=== PATIENT | male | born 1945 | race Caucasian/White ===

== ENCOUNTER → 2019-03-17 | Outpatient (CLI) | payer MEDICARE, OTHER ==
[~2019-03-17] MED LIST: DIAZ5 PO; NAPR500 PO; RAPAFLO; [UNRECOGNIZED DRUG - REMARK]
== END | disposition home or self-care (01) ==
LOC: PLD 10:39 → LAB SHORT 10:39
DX: L57.0 Actinic keratosis (principal)
CPT/HCPCS: 88305

== ENCOUNTER → 2019-11-03 | Outpatient (CLI) | payer MEDICARE, OTHER ==
[2019-11-04 06:26] LABS: Stool Occult Bld Immuno 1 Negative (NEGATIVE); Stool Occult Bld Immuno 2 Negative (NEGATIVE)
== END | disposition home or self-care (01) ==
LOC: LAB 08:00 → LAB SHORT 08:00 → LAB FUT 10-14 11:40 → EDSTATUS 10-14 11:40
PROVIDERS: Internal Medicine Gastroenterology
DX: Z12.11 Encounter for screening for malignant neoplasm of colon (principal); Z86.010 Personal history of colon polyps
CPT/HCPCS: G0328

== ENCOUNTER → 2021-01-25 | Outpatient (CLI) | payer MEDICARE, OTHER | END | disposition home or self-care (01) | LOC: LAB SHORT 15:00 → LAB 15:00 | DX: D48.5 Neoplasm of uncertain behavior of skin (principal) | CPT/HCPCS: 88305 ==

== ENCOUNTER 2023-04-20 08:43 | Day surgery (SDC) | payer MEDICARE, OTHER ==
[2023-04-20] VITALS (18 sets, daily range): BP systolic 94–167; BP diastolic 48–132
[~2023-04-20] VITALS: Ht 172.7 cm; Wt 79.0 kg
--- NOTE | 2023-04-20 10:11 | NUR ---
History, Chart, Medications and Allergies reviewed before start of procedure.PRE OP TEACHING DONE, IN WAITING ROOM. GLASSES LEFT AT BEDSIDE DURING PROCEDURE
[2023-04-20] MEDS ORDERED: Aspir 8181 MG PO (10:20)
[2023-04-20] MEDS ORDERED: ATOR80 PO (10:21)
[2023-04-20] MEDS ORDERED: OMEP20ER PO (10:21)
[2023-04-20] MEDS ORDERED: LOSARTAN POTAS100 M1 PO (10:21)
--- NOTE | 2023-04-20 10:21 | NUR ---
04/20/23 1021 Junito Melchor HISTORY, CHART, MEDICATIONS AND ALLERGIES REVIEWED BEFORE START OF PROCEDURE. PATIENT CONFIRMS NPO STATUS AND AGREES WITH SCHEDULED PROCEDURE. 3-LEAD EKG REVIEWED WITH PHYSICIAN PRIOR TO START OF PROCEDURE. MONITOR INTACT WITH CONTINUOUS PULSE OXIMETRY,CAPNOGRAPHY, 3-LEAD EKG, INTERMITTENT BP. SUPPLEMENTAL O2 TO BE TITRATED THROUGHOUT PROCEDURE TO MAINTAIN O2 SATURATION ABOVE 90%. PATIENT DETERMINED TO BE ASA APPROPRIATE FOR PROPOFOL SEDATION PRIOR TO START OF PROCEDURE BY
[2023-04-20] MEDS ORDERED: TADA10TA PO (10:22)
--- NOTE | 2023-04-20 10:48 | NUR ---
REPORT RECIEVED. PT SITTING UP IN BED. VSS ON ROOM AIR. DR MOLINA AT BEDSIDE
--- NOTE | 2023-04-20 11:04 | NUR ---
Patient up to Ambulate independently. Gait steady. Discharge instructions reviewed with patient AND Patient verbalizes understanding. Copy given to patient to take home. Discharged via wheelchair to private car for ride home.
== END 2023-04-20 11:05 | disposition home or self-care (01) ==
LOC: ORSCMMR 08:43 → ORD 09:30 → ORSCMMR 10:00
PROVIDERS: Internal Medicine Gastroenterology
PROC: 0D757ZZ Dilation of Esophagus, Via Natural or Artificial Opening (ICD-10-PCS; principal; 2023-04-20 10:00)
PROC: 0DB58ZX Excision of Esophagus, Via Natural or Artificial Opening Endoscopic, Diagnostic (ICD-10-PCS; principal; 2023-04-20 10:00)
DX: R13.14 Dysphagia, pharyngoesophageal phase (principal); K20.90 Esophagitis, unspecified without bleeding; K22.2 Esophageal obstruction; K44.9 Diaphragmatic hernia without obstruction or gangrene; Z79.82 Long term (current) use of aspirin; Z79.899 Other long term (current) drug therapy
CPT/HCPCS: 88305; J2704; J7120

== ENCOUNTER → 2023-07-20 | Outpatient (CLI) | payer MEDICARE, OTHER ==
[~2023-07-20] MED LIST changes: +ATOR80 PO; +Aspir 8181 MG PO; +LOSARTAN POTAS100 M1 PO; +OMEP20ER PO; +TADA10TA PO
== END ==
LOC: LAB SHORT 06:30 → LAB 06:30 → LAB FUT 07-09 07:30
DX: N17.9 Acute kidney failure, unspecified (principal); R79.89 Other specified abnormal findings of blood chemistry
CPT/HCPCS: 81050

== ENCOUNTER 2024-10-28 07:33 | Day surgery (SDC) | payer MEDICARE, OTHER ==
[~2024-10-28] VITALS: Ht 170.2 cm; Wt 78.9 kg
[2024-10-28] MEDS ORDERED: propofoL 50 ML IV ONE (07:36)
[2024-10-28] MEDS ORDERED: Lactated Ringer's 1,000 ML IV ONE ×2 (07:36→08:19)
[2024-10-28] MEDS ORDERED: HYDCHL25 (08:04)
[2024-10-28 10:08] VITALS: BP 130/70
== END 2024-10-28 10:06 | disposition home or self-care (01) ==
LOC: ORSCSDS 07:33
PROVIDERS: Internal Medicine Gastroenterology
PROC: 0DJD8ZZ Inspection of Lower Intestinal Tract, Via Natural or Artificial Opening Endoscopic (ICD-10-PCS; principal; 2024-10-28 09:00)
DX: Z12.11 Encounter for screening for malignant neoplasm of colon (principal); Z86.0100 Personal history of colon polyps, unspecified; K57.30 Diverticulosis of large intestine without perforation or abscess without bleeding; Z79.82 Long term (current) use of aspirin; Z79.899 Other long term (current) drug therapy
CPT/HCPCS: J2704; J7120